=== PATIENT | female | born 1930 | race Caucasian/White ===

== ENCOUNTER 2017-09-07 14:48 | Outpatient (POV) ==
[2012-11-07 11:43] VITALS: TEMP 97.7
[2015-12-29 11:40] VITALS: BMI 26.5
== END 2017-09-07 17:00 ==
LOC: OUTPT 14:48
PROVIDERS: ATTEND Otolaryngology
DX: H91.90 Unspecified hearing loss, unspecified ear (principal)
CPT/HCPCS: 92557; 92567

== ENCOUNTER 2018-10-17 07:34 | Day surgery (SDC) ==
[2015-12-29 11:40] VITALS: BMI 26.5
[2018-10-17 08:28] VITALS: TEMP 98.3
[2018-10-17] MEDS ORDERED: LIDOCAINE 1% 20 ML MDV ID STA (08:30)
[2018-10-17] MEDS ORDERED: DIPRIVAN 20 ML VIAL IVP ONE (09:55)
[2018-10-17] MEDS ORDERED: LIDOCAINE HCL 2% LUER-JET ONE (09:55)
[2018-10-17] MEDS ORDERED: VERSED ONE (09:55)
[2018-10-17 15:11] VITALS: BP 123/65
--- NOTE | 2018-10-18 08:47 | OP ---
INDICATIONS FOR PROCEDURE: 88-year-old female presents for endoscopy exam. She has been having some abdominal pain and weight loss. She complains of post prandial pain. She admits that she is having a lot of stress since her has . She has not been eating much. She tells me yesterday was the first time she has gone to the grocery store since her and she is going to try and eat healthier. MEDICATIONS: SEE ANESTHESIA NOTES. PROCEDURE: ENDOSCOPY, LATVIAN DILATATION. REPORT: The risks, benefits, alternatives and limitations were discussed in detail with the patient. Informed consent was obtained. After adequate sedation was achieved, the video endoscope was introduced in the posterior pharynx and esophagus under direct vision and easily advanced down to the second portion of the duodenum. I then slowly withdrew. The duodenal mucosa appeared unremarkable as did the duodenal bulb. The antrum and body were relatively unremarkable. The scope was retroflexed to look at the cardia and fundus which was unremarkable. There was a small hiatal hernia. The scope was anteflexed and withdrawn back through the esophagus. She had a small 1 to 2 cm hiatal hernia. In the GE junction there was mild stricturing causing very mild luminal narrowing. The esophagus appeared unremarkable otherwise. I advanced the scope back down the gastric lumen. I placed a guidewire. I withdrew the scope. Over the guidewire I easily advanced a 51 [place] dilator. The patient tolerated the procedure well with stable vital signs and pulse oximetry throughout. IMPRESSION: 1. SMALL HIATAL HERNIA. 2. DISTAL ESOPHAGEAL STRICTURE DILATED ABOVE. 3. NOTHING OBVIOUS TO ACCOUNT FOR HER SYMPTOMS. RECOMMENDATIONS: 1. Strict reflux precautions. 2. Small meals throughout the day. 3. Will schedule CT scan of the abdomen and pelvis with contrast to finalize GI evaluation. 4. If CT is unremarkable, will see her back in the office as needed and she will continue to followup with Dr. Butler. CC: DR. GUILLERMO BATES
== END 2018-10-17 11:15 | disposition home or self-care (01) ==
LOC: SURG 07:34
PROVIDERS: ATTEND Internal Medicine Gastroenterology
DX: K21.9 Gastro-esophageal reflux disease without esophagitis (principal); R10.10 Upper abdominal pain, unspecified; K44.9 Diaphragmatic hernia without obstruction or gangrene; K22.2 Esophageal obstruction